=== PATIENT | male | born 1995 | race Caucasian/White ===

== ENCOUNTER 2017-02-06 06:30 | Emergency (ER) | payer OTHER ==
[~2017-02-06] VITALS: Ht 185.4 cm; Wt 113.4 kg
[~2017-02-06 06:30] MED LIST: BACTRIM DS 8001 TAB PO; BACTROBAN OINT.30 GM TOP
--- NOTE | 2017-02-06 06:33 | ED NECK/BACK PAIN COMPLAINT ---
History of Present Illness General Chief Complaint: Low Back Pain/Injury Stated Complaint: BACK PAIN Source: patient, family, old records Exam Limitations: no limitations Vital Signs & Intake/Output Vital Signs & Intake/Output Vital Signs Date Time Temp Pulse Resp B/P B/P Pulse O2 O2 Flow FiO2 Mean Ox Delivery Rate 02/06 0642 98.5 98 18 166/92 97 Room Air Allergies Coded Allergies: NO KNOWN ALLERGIES (02/06/17) Reconcile Medications Cyclobenzaprine HCl 10 MG TABLET 1 TAB PO Q8P PAIN OR SPASM Mupirocin (Bactroban Oint. 2% 30GM) 30 GM CREAM..G. 1 RAFAEL TOP TID SKIN INFECTION apply to affected area(s) Oxycodone HCl/Acetaminophen (Percocet 5-325 MG Tablet) 5 MG-325 MG TABLET 1-2 TAB PO Q6P PRN PAIN Sulfamethoxazole/Trimethopri (Bactrim Ds 800 MG-160 MG) 1 TAB TAB 1 TAB PO BID SKIN INFECTION Triage Nurses Notes Reviewed? yes HPI: Patient presents with acute exacerbation of chronic back pain. Patient states that he hurt his back a few years ago and it has been hurting since. The pain increased about one week ago. The pain is diffusely around his back. The pain is aching in nature. The pain is 10 out of 10. The pain increased with movement. There is no weakness or numbness. There is no incontinence of bowel or bladder. There are no fevers or chills. Patient was seen by an orthopedic clinic and was put on naproxen twice a day and had x-rays which did not show anything acute. Patient has a follow-up appointment on Saturday but does not feel that he can wait because he was unable to sleep last night because of the pain. Past History Travel History Traveled to [place] past 21 day No Medical History Any Pertinent Medical History? 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 No Review of Systems Review of Systems Constitutional: Reports: no symptoms. Ears, Nose, Throat, Mouth: Reports: no symptoms. Respiratory: Reports: no symptoms. Cardiovascular: Reports: no symptoms. Gastrointestinal/Abdominal: Reports: no symptoms. Musculoskeletal: Reports: see HPI, back pain. Neurological/Psychological: Reports: no symptoms. Physical Exam Physical Exam General Appearance: well developed/nourished, alert, awake, moderate distress Head: atraumatic, normal appearance Eyes: Bilateral: PERRL, EOMI. Neck: normal inspection, supple, full range of motion, no midline tenderness Respiratory: normal breath sounds, chest non-tender, no respiratory distress, lungs clear Cardiovascular: regular rate/rhythm, normal peripheral pulses Gastrointestinal: normal bowel sounds, soft, non-tender, no organomegaly Back: normal inspection, normal range of motion, muscle spasm, no vertebral tenderness Straight Leg Raising: Right: Negative. Left: Negative. DTR: Patellar: 3: L4 Right, L4 Left. Achilles: 2: S1 Right, S1 Left. Neurologic/Psych: no motor/sensory deficits, awake, alert, oriented x 3, normal gait, normal mood/affect Progress Differential Diagnosis: myofascial strain, sciatica, T/L spine injury Plan of Care: Current Medications Sig/Tonny Start time Last Medication Dose Stop Time Status Admin Cyclobenzaprine HCl 10 MG ONCE ONE 02/06 0700 AC (Flexeril 10MG Tab) 02/06 701 Oxycodone/ 1 TAB ONCE ONE 02/06 0700 AC Acetaminophen 02/06 701 (Percocet) Departure Departure Disposition: HOME OR SELF CARE Condition: Stable Clinical Impression Primary Impression: Back pain Qualifiers: Back pain location: thoracic back pain Chronicity: chronic Back pain laterality: bilateral Qualified Codes: M54.6 - Pain in thoracic spine; G89.29 - Other chronic pain Referrals: OSITO PITT,BRIANDA Riddle Additional Instructions: follow up with your orthopedic appoitment reutrn for any concerns Departure Forms: Customer Survey General Discharge Information Prescriptions: Current Visit Scripts Cyclobenzaprine HCl 1 TAB PO Q8P #20 TAB Oxycodone HCl/Acetaminophen (Percocet 5-325 MG Tablet) 1-2 TAB PO Q6P PRN PAIN #20 TAB
[2017-02-06 06:42] VITALS: BP 166/92
[2017-02-06] MEDS ORDERED: PERCOCET 5-3251 EACH PO (06:52)
[2017-02-06] MEDS ORDERED: CYCLOBENZAPRINE10 M1 PO (06:52)
== END 2017-02-06 07:00 ==
LOC: ERH 06:30
DX: M54.9 Dorsalgia, unspecified (principal)

== ENCOUNTER 2017-08-20 20:14 | Emergency (ER) | payer OTHER ==
[~2017-08-20] VITALS: Ht 182.9 cm; Wt 142.9 kg
[~2017-08-20 20:14] MED LIST changes: +CYCLOBENZAPRINE10 M1 PO; +DILAUDID2 M1 PO; +PERCOCET 5-3251 EACH PO; +ZOFRAN ODT4 M1 SL
--- NOTE | 2017-08-20 21:02 | ED DYSPNEA/ASTHMA COMPLAINT ---
History of Present Illness General Chief Complaint: Dyspnea (COPD, CHF, Other) Stated Complaint: DIFF BREATHING X2DAYS, CP, BACK PAIN Source: patient Exam Limitations: no limitations Vital Signs & Intake/Output Vital Signs & Intake/Output Vital Signs Date Time Temp Pulse Resp B/P B/P Pulse O2 O2 Flow FiO2 Mean Ox Delivery Rate 08/20 2233 99.0 94 19 139/87 95 Room Air 08/20 2101 97 Room Air 08/20 2031 99.6 112 18 148/91 95 Room Air ED Intake and Output 08/21 0000 08/20 1200 Intake Total 0 Output Total Balance 0 Intake, Oral 0 Patient 315 lb Weight Weight Estimated Measurement Method Allergies Coded Allergies: NO KNOWN ALLERGIES (02/06/17) Reconcile Medications Albuterol Sulfate (Proventil Hfa) 90 MCG HFA.AER.AD 2 PUF INH Q4 SOB Codeine Phosphate/Guaifenesi (Cheratussin AC Syrup) 10 MG-100 MG/5 ML LIQUID 5 -10 ML PO Q6P PRN COUGH Levofloxacin (Levaquin) 750 MG TABLET 1 TAB PO DAILY PNA Ondansetron (Zofran Odt) 4 MG TAB.RAPDIS 1 TAB SL TID NAUSEA Triage Note: RECEIVED 21 YO MALE C/O CHEST TIGHTNESS WITH DIFFICULTY BREATHING X 3 DAYS. PT REPORTS NON PRODUCTIVE COUGH, WAS COUGHING UP BLOODY SECRETIONS BUT NOT TODAY. PT REPORTS CONGESTION, AND PLEURITIC CHEST PAIN WITH COUGHING Triage Nurses Notes Reviewed? yes Onset: Abrupt Duration: day(s): (FEW), constant, continues in ED Timing: recent history Severity: moderate, severe HPI: 21-year-old male comes into emergency room for further evaluation of chest pain shortness of breath and noticed some blood-tinged mucus when he coughed today. He reports that he has not been feeling well for the past few days. Initially some mucus production. No vomiting. Pain is worse with coughing. (Shlmoo Camacho) Past History Travel History Traveled to [place] past 21 day No Medical History Any Pertinent Medical History? 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 No (Shlomo Camacho) Review of Systems Review of Systems Constitutional: Reports: no symptoms. EENTM: Reports: no symptoms. Respiratory: Reports: see HPI. Cardiovascular: Reports: see HPI. GI: Reports: no symptoms. Genitourinary: Reports: no symptoms. Musculoskeletal: Reports: no symptoms. Skin: Reports: no symptoms. Neurological/Psychological: Reports: no symptoms. Hematologic/Endocrine: Reports: no symptoms. Immunologic/Allergic: Reports: no symptoms. All Other Systems: Reviewed and Negative (Shlomo Camacho) Physical Exam Physical Exam General Appearance: well developed/nourished, no apparent distress, alert Head: atraumatic, normal appearance Eyes: Bilateral: normal appearance. Ears, Nose, Throat: normal ENT inspection, hearing grossly normal Neck: normal inspection Respiratory: normal breath sounds, no respiratory distress Cardiovascular: regular rate/rhythm Extremities: normal inspection Neurologic/Psych: awake, alert, oriented x 3, normal gait Skin: intact, normal color Core Measures ACS in differential dx? Yes CVA/TIA Diagnosis No Sepsis Present: No Sepsis Focused Exam Completed? No (Shlomo Camacho) Progress Differential Diagnosis: asthma, bronchitis, costochondritis, musculoskeletal pain, pulmonary embolism, pneumonia Plan of Care: Orders Procedure Date/time Status TROPONIN LEVEL 08/20 2058 Complete D-DIMER 08/20 2058 Complete COMPREHENSIVE METABOLIC PANEL 08/20 2058 Complete CBC WITHOUT DIFFERENTIAL 08/20 2058 Complete EKG 08/20 2015 Active Laboratory Tests 08/20/170: Anion Gap 10, Estimated GFR > 60, BUN/Creatinine Ratio 16.3, Glucose 115 H, Calcium 9.4, Total Bilirubin 0.5, AST 33, ALT 82 H, Alkaline Phosphatase 71, Troponin I < 0.01, Total Protein 6.9, Albumin 4.1, Globulin 2.8, Albumin/ Globulin Ratio 1.5, D-Dimer High Sensitivty < 200, CBC w Diff NO MAN DIFF REQ, RBC 5.65, MCV 83.5, MCH 27.6, RDW 13.7, MPV 7.2 L, Gran % 66.2, Lymphocytes % 20.0 L, Monocytes % 11.9 H, Eosinophils % 1.6, Basophils % 0.3, Absolute Granulocytes 7.7 H, Absolute Lymphocytes 2.3, Absolute Monocytes 1.4 H, Absolute Eosinophils 0.2, Absolute Basophils 0, PUBS MCHC 33.0 Diagnostic Imaging: Viewed by Me: Radiology Read. Discussed w/RAD: Radiology Read. Radiology Impression: PATIENT: JD MCCOY PRESENT AGE: 21 PATIENT ACCOUNT NO: [id number] : 96 LOCATION: [facility] ORDERING PHYSICIAN: Shlomo COBIAN SERVICE DATE: 08/20/17 EXAM TYPE : RAD - XRY-CHEST XRAY, TWO VIEWS EXAMINATION: XR CHEST CLINICAL INFORMATION: 21 -year-old man with chest pain and cough. COMPARISON: None TECHNIQUE: 2 views of the chest were obtained. FINDINGS: The lungs are normally expanded. No focal consolidation or pneumothorax is appreciated. Reticular changes at both lung bases could be inflammatory versus secondary to overlying soft tissue. Heart size is within the range of normal. There are no pleural effusions. IMPRESSION: Nonspecific reticular opacities at both lung bases could be inflammatory versus artifactual. DICTATED BY: Keerthi Milan MD DATE/TIME DICTATED:08/20/172123 SUPERVISOR ORCHARD:CELIA DATE/TIME TRANSCRIBED:08/20/172123 CONFIDENTIAL, DO NOT COPY WITHOUT APPROPRIATE AUTHORIZATION. <Electronically signed in Other Vendor System> SIGNED BY: Keerthi Milan MD 08/20/172128 Initial ED EKG: normal sinus rhythm, rate (102), nonspecific ST T wave chg (Mario Alberto COBIAN,Shlomo) Departure Departure Disposition: HOME OR SELF CARE Condition: Stable Clinical Impression Primary Impression: Pneumonia Referrals: Patient Has No Primary Care Dr (PCP/Family) Additional Instructions: Take Levaquin, Robitussin with codeine, Zofran, and albuterol prescribed. Drink plenty of fluids. Rest. Repeat chest x-ray in 2 weeks. Return sooner if any other concerns worsening symptoms. Follow-up with your primary care physician this week. Contact them to let them know you were here in the emergency room. Return to the emergency room at any time sooner if you have worsening of your symptoms or any other concerns. Please note that there might be incidental findings in your evaluation that are unrelated to the current emergency department visit. Please notify your primary care doctor about this emergency department visit in order to obtain and review all of the testing performed so that these incidental findings can be monitored as needed. If you were prescribed a narcotic use caution as this medication is highly addictive and may make you feel lightheaded,dizzy or drowsy. These can make you constipated. Use for breakthrough pain only. No driving, drinking alcohol or operating machinary when taking. If you had an x-ray performed, please understand that some fractures may not be seen on the initial set of x-rays. If your symptoms persist you might need a repeat set of x-rays to check for such a fracture. If you had a laceration evaluated, please understand that foreign bodies such as glass or wood may not be visible to the naked eye or on plain x-rays. If the wound becomes red, swollen, increasingly more painful or if there is any drainage from the wound, please have it reevaluated by a physician for the possibility of a retained foreign body. Departure Forms: Customer Survey General Discharge Information Prescriptions: Current Visit Scripts Levofloxacin (Levaquin) 1 TAB PO DAILY #7 TAB Albuterol Sulfate (Proventil Hfa) 2 PUF INH Q4 #1 INHAL Codeine Phosphate/Guaifenesi (Cheratussin AC Syrup) 5-10 ML PO Q6P PRN COUGH #6 OZ Ondansetron (Zofran Odt) 1 TAB SL TID #10 TAB Comments Patient clinically looks well. Symptoms are most consistent with pneumonia/ infectious process. Patient treated symptomatically. Repeat chest x-ray in 2 weeks. Negative d-dimer. No suspicion for pulmonary embolism with negative d- dimer. Follow-up with PCP. Return if any other concerns. Patient clinically looks well on discharge. Results were discussed with the patient including some nonspecific ST changes on his EKG which he was told to follow-up with his primary doctor about. (Shlomo Camacho) PA/RN CLINICAL COORDINATOR Co-Sign Statement Statement: ED Attending supervision documentation- [] I saw and evaluated the patient. I have also reviewed all the pertinent lab results and diagnostic results. I agree with the findings and the plan of care as documented in the PA's/RN CLINICAL COORDINATOR's documentation. [X] I have reviewed the ED Record and agree with the PA's/RN CLINICAL COORDINATOR's documentation. [] Additions or exceptions (if any) to the PAs/RN CLINICAL COORDINATOR's note and plan are summarized below: [] (Claudine PITT,Jillian) Critical Care Note Critical Care Note Critical Care Time: non-applicable (Mario Alberto COBIAN,Shlomo)
--- NOTE | 2017-08-20 21:29 | RADIOLOGY REPORT ---
EXAMINATION: XR CHEST CLINICAL INFORMATION: 21-year-old man with chest pain and cough. COMPARISON: None TECHNIQUE: 2 views of the chest were obtained. FINDINGS: The lungs are normally expanded. No focal consolidation or pneumothorax is appreciated. Reticular changes at both lung bases could be inflammatory versus secondary to overlying soft tissue. Heart size is within the range of normal. There are no pleural effusions. IMPRESSION: Nonspecific reticular opacities at both lung bases could be inflammatory versus artifactual.
[2017-08-20 21:44] LABS: ABSOLUTE BASOPHIL COUNT 0 /CUMM (0.0-0.2); ABSOLUTE EOSINOPHIL COUNT 0.2 /CUMM (0.0-0.7); ABSOLUTE GRANULOCYTE CT 7.7 /CUMM (1.4-6.5); ABSOLUTE LYMPH COUNT 2.3 /CUMM (1.2-3.4); ABSOLUTE MONOCYTE COUNT 1.4 /CUMM (0.10-0.60); BASOPHIL % 0.3 % (0.0-2.0); EOSINOPHIL % 1.6 % (0-5); GRANULOCYTE % 66.2 % (42.2-75.2); HEMATOCRIT 47.1 % (42-52); MEAN CORPUSCULAR HGB 27.6 PG (27.0-31.0); MEAN CORPUSCULAR VOLUME 83.5 FL (80.0-94.0); MEAN PLATELET VOLUME 7.2 FL (7.4-10.4); PLATELET COUNT 306 /CUMM (130-400); RBC DISTRIBUTION WIDTH 13.7 % (11.5-14.5); RED BLOOD CELL CT 5.65 /CUMM (4.70-6.10); WHITE BLOOD CELL COUNT 11.6 /CUMM (4.8-10.8)
[2017-08-20] MEDS ORDERED: ZOFRAN ODT4 M1 SL (22:28)
[2017-08-20] MEDS ORDERED: LEVAQUIN750 M1 PO (22:28)
[2017-08-20] MEDS ORDERED: CHERATUSSIN AC118 M1 PO (22:28)
[2017-08-20] MEDS ORDERED: PROVENTIL HFA6.7 GM INH (22:28)
[2017-08-20 22:34] VITALS: BP 139/87
== END 2017-08-20 22:35 ==
LOC: ERH 20:14
PROVIDERS: Physician Assistant Medical
DX: J18.9 Pneumonia, unspecified organism (principal); R07.89 Other chest pain
CPT/HCPCS: 71046; 93005; 93010